=== PATIENT | male | born 1955 | race Two or more races ===

== ENCOUNTER 2021-11-12 11:06 | Inpatient (IN) | payer OTHER, MEDICAID ==
[~2021-11-12] VITALS: Ht 177.8 cm; Wt 89.5 kg
[2021-11-12] MEDS ORDERED: SODIUM CHLORIDE 0.9% 500 ML IV ONE (11:30)
[2021-11-12 12:43] LABS: Basophils # (auto) 0 10 ^3/uL (0-0.2); Eosinophils # (auto) 0.1 10 ^3/uL (0-0.8); Eosinophils % (auto) 1.3 % (0.0-7.0); Hemoglobin 10.1 g/dL (13.5-17.5); Mean Corpuscular Hgb Conc. 32.4 g/dL (32.0-36.0); Mean Corpuscular Volume 74.1 fL (80.0-100.0)
[2021-11-12 12:45] LABS: Basophils % (auto) 0.3 % (0.0-2.0); Lymphocytes # (auto) 0.4 10 ^3/uL (0.4-5.4); Lymphocytes % (auto) 5.1 % (10.0-50.0); Monocytes # (auto) 0.6 10 ^3/uL (0-1.3); Monocytes % (auto) 6.6 % (0.0-12.0); Neutrophils # (auto) 7.3 10 ^3/uL (1.6-8.6); Neutrophils % (auto) 86.7 % (37.0-80.0); Red Blood Cells 4.19 10^6/uL (4.5-5.90); Red Cell Distribution Width 16.4 % (11.8-14.3); White Blood Cell 8.4 10^3/uL (4.4-10.8)
[2021-11-12] MEDS ORDERED: AZITHROMYCIN 500MG/ 250ML 250 ML IV ONE (12:45)
[2021-11-12] MEDS ORDERED: SODIUM CHLORIDE 0.9% 1,000 ML IV ONE (12:45)
[2021-11-12] MEDS ORDERED: cefTRIAXone 1GM/50ML D5W 50 ML IV ONE ×2 (12:45)
[2021-11-12 13:07] LABS: Albumin 1.9 g/dL (3.4-5.0); BUN/Creatinine Ratio 22.5; Magnesium 2.1 mg/dL (1.6-2.6); Potassium 3.9 mmol/L (3.5-5.1)
[2021-11-12 13:10] LABS: Bilirubin, Total 0.4 mg/dL (0.2-1.0)
[2021-11-12 13:32] LABS: Urine Bacteria MANY /hpf (None Seen); Urine Blood 1+ /uL (Negative); Urine Mucus MANY (None Seen); Urine WBC 1299 /hpf (0 - 3); Urine WBC Clumps PRESENT /hpf (None Seen)
[2021-11-12 13:37] LABS: Urine Specific Gravity 1.012 (1.001-1.035)
[2021-11-12] MEDS ORDERED: MORPHINE SULFATE INJ 2 MG/ml SYRG IV ONE (14:00)
[2021-11-12] MEDS ORDERED: ONDANSETRON HCL 4 MG/2 ML VIAL IV ONE (14:00)
[2021-11-12] MEDS ORDERED: NITROGLYCERIN 0.4 MG SL TAB SL PRN (14:15)
[2021-11-12] MEDS ORDERED: MORPHINE SULFATE INJ 2 MG/ml SYRG IV PRN ×2 (14:15→20:30)
[2021-11-12] MEDS ORDERED: ACETAMINOPHEN 325 MG TAB PO ONE (18:30)
[2021-11-12] MEDS ORDERED: DOCUSATE SOD 100 MG CAP PO PRN (20:30)
[2021-11-12] MEDS ORDERED: ACETAMINOPHEN 325 MG TAB PO PRN (20:30)
[2021-11-12] MEDS ORDERED: hydrALAZINE HCL 20 MG/ML VL IV PRN (20:30)
[2021-11-12] MEDS ORDERED: PANTOPRAZOLE 40 MG/10 ML VIAL INJ IV ONE (20:30)
[2021-11-12] MEDS ORDERED: ONDANSETRON HCL 4 MG/2 ML VIAL IV PRN (20:30)
[2021-11-12 21:11] LABS: Magnesium 1.9 mg/dL (1.6-2.6); Phosphorus 3.1 mg/dL (2.5-4.90)
[2021-11-12] MEDS: GABAPENTIN 300 MG CAP PO SCH (22:00)
[2021-11-12] MEDS: traZODone HCL 50 MG TAB PO SCH (22:00)
[2021-11-12] MEDS: CLINDAMYCIN 600MG IV 50 ML IV SCH (22:00)
[2021-11-12 23:00] VITALS: BP 109/63
[2021-11-13] VITALS (7 sets, daily range): BP systolic 95–156; BP diastolic 48–82
[2021-11-13 00:18] LABS: INR 1.14 (0.9-1.15); Partial Thromboplastin Time 30.5 sec (23.6-33.0)
[2021-11-13] MEDS: HYDROcodone-ACET 5/325MG TAB PO PRN (00:33)
[2021-11-13] MEDS ORDERED: GABA100C9 PO (01:32)
[2021-11-13] MEDS ORDERED: ZOLP10TA PO (01:32)
[2021-11-13] MEDS ORDERED: LORA1TAB23 PO (01:32)
[2021-11-13] MEDS ORDERED: IBUP600T27 PO (01:32)
[2021-11-13] MEDS: LORazepam 0.5 MG TAB PO PRN (04:51)
[2021-11-13] MEDS: GABAPENTIN 300 MG CAP PO SCH ×3 (05:00→22:48)
[2021-11-13] MEDS: CLINDAMYCIN 600MG IV 50 ML IV SCH (05:00)
[2021-11-13 06:36] LABS: Basophils # (auto) 0 10 ^3/uL (0-0.2); Basophils % (auto) 0.3 % (0.0-2.0); Eosinophils # (auto) 0.3 10 ^3/uL (0-0.8); Hemoglobin 9.2 g/dL (13.5-17.5); Monocytes # (auto) 0.5 10 ^3/uL (0-1.3); Nucleated Red Blood Cells % 0.2 %; White Blood Cell 7.4 10^3/uL (4.4-10.8)
[2021-11-13 06:39] LABS: Eosinophils % (auto) 3.9 % (0.0-7.0); Hematocrit 28.9 % (41.0-53.0); Lymphocytes # (auto) 0.5 10 ^3/uL (0.4-5.4); Lymphocytes % (auto) 7.1 % (10.0-50.0); Mean Corpuscular Hemoglobin 24.1 pg (28.0-32.0); Mean Corpuscular Hgb Conc. 31.7 g/dL (32.0-36.0); Mean Corpuscular Volume 76.1 fL (80.0-100.0); Monocytes % (auto) 6.4 % (0.0-12.0); Neutrophils # (auto) 6.1 10 ^3/uL (1.6-8.6); Neutrophils % (auto) 82.3 % (37.0-80.0); Red Cell Distribution Width 16.5 % (11.8-14.3)
[2021-11-13 06:42] LABS: Chloride 106 mmol/L (98-107); Potassium 3.5 mmol/L (3.5-5.1); Sodium 139 mmol/L (136-145); Uric Acid 6.4 mg/dL (3.5-7.2)
[2021-11-13 06:53] LABS: Alanine Aminotransferase 11 U/L (16-61); Albumin 1.7 g/dL (3.4-5.0); Alkaline Phosphatase 156 U/L (45-117); Anion Gap 8 (5-15); Aspartate Aminotransferase 13 U/L (15-37); BUN/Creatinine Ratio 18.5; Bilirubin, Total 0.6 mg/dL (0.2-1.0); Blood Urea Nitrogen 10 mg/dL (7-18); Calcium 8.6 mg/dL (8.5-10.1); Carbon Dioxide 25 mmol/L (21-32); Cholesterol 121 mg/dL (< 200); Creatine Kinase IFCC 49 U/L (39-308); GFR African American 197 mL/min; GFR Non-African American 163 mL/min; Glucose 90 mg/dL (74-106); HDL Cholesterol 27 mg/dL (40-59); LDL Cholesterol 80 mg/dL (< 100); Lipase 74 U/L (73-393); Phosphorus 3.4 mg/dL (2.5-4.90); Total Protein 6.6 g/dL (6.4-8.2); Triglycerides 115 mg/dL (< 150)
[2021-11-13 06:58] LABS: INR 1.11 (0.9-1.15); Partial Thromboplastin Time 30.5 sec (23.6-33.0)
[2021-11-13 08:07] LABS: CRP High Sensitivity > 19.0 mg/dL (< 0.3)
[2021-11-13] MEDS ORDERED: cefTRIAXone 1GM/50ML D5W 50 ML IV SCH (09:00)
[2021-11-13] MEDS: ENOXAPARIN SOD 40 MG/0.4 ML SYRINGE SC SCH (09:04)
[2021-11-13] MEDS ORDERED: PANTOPRAZOLE 40 MG/10 ML VIAL INJ IV SCH (10:00)
[2021-11-13] MEDS: PIPERACILLIN-TAZO 4.5GM 100 ML IV SCH ×2 (16:30→22:53)
[2021-11-13] MEDS: traZODone HCL 50 MG TAB PO SCH (22:47)
[2021-11-14] MEDS: HYDROcodone-ACET 5/325MG TAB PO PRN (04:47)
[2021-11-14 04:56] VITALS: BP 106/59
[2021-11-14 05:24] LABS: Urine Bacteria FEW /hpf (None Seen); Urine Blood 2+ /uL (Negative); Urine Mucus FEW (None Seen); Urine Specific Gravity 1.014 (1.001-1.035); Urine WBC 834 /hpf (0 - 3); Urine WBC Clumps PRESENT /hpf (None Seen)
[2021-11-14 05:34] LABS: Amphetamine Screen, Urine NEGATIVE (NEGATIVE); Barbiturate Scree,Urine NEGATIVE (NEGATIVE); Benzodiazephine Screen, Urine NEGATIVE (NEGATIVE); Cannabinoid Screen, Urine NEGATIVE (NEGATIVE); Cocaine Screen, Urine NEGATIVE (NEGATIVE); Phencyclidine Screen, Urine NEGATIVE (NEGATIVE)
[2021-11-14 05:42] LABS: Opiate Scree,Urine POSITIVE (NEGATIVE)
[2021-11-14] MEDS: PIPERACILLIN-TAZO 4.5GM 100 ML IV SCH ×3 (05:48→22:10)
[2021-11-14] MEDS: GABAPENTIN 300 MG CAP PO SCH ×3 (05:48→22:10)
[2021-11-14 09:02] VITALS: BP 100/51
[2021-11-14] MEDS: ENOXAPARIN SOD 40 MG/0.4 ML SYRINGE SC SCH (12:17)
[2021-11-14 12:57] VITALS: BP 99/50
[2021-11-14 17:03] VITALS: BP 96/46
[2021-11-14] MEDS: PHENAZOPYRIDINE HCL 100 MG TAB PO SCH (18:12)
[2021-11-14] MEDS: Juven Orange Powder PACKET 27.5gm PO SCH (18:45)
[2021-11-14] MEDS: Pro-Stat SF 30ml Vanilla PO SCH (18:46)
[2021-11-14 22:00] VITALS: BP 94/54
[2021-11-14] MEDS: traZODone HCL 50 MG TAB PO SCH (22:10)
[2021-11-14] MEDS: LORazepam 0.5 MG TAB PO PRN (22:12)
[2021-11-15 05:00] VITALS: BP 110/65
[2021-11-15] MEDS: PIPERACILLIN-TAZO 4.5GM 100 ML IV SCH ×3 (05:31→21:24)
[2021-11-15] MEDS: GABAPENTIN 300 MG CAP PO SCH ×3 (05:31→21:25)
[2021-11-15 08:00] VITALS: BP 101/56
[2021-11-15] MEDS: PHENAZOPYRIDINE HCL 100 MG TAB PO SCH ×3 (08:00→18:06)
[2021-11-15] MEDS: Pro-Stat SF 30ml Vanilla PO SCH ×2 (08:00→18:08)
[2021-11-15 08:05] LABS: Basophils # (auto) 0 10 ^3/uL (0-0.2); Eosinophils # (auto) 0.3 10 ^3/uL (0-0.8); Hemoglobin 8.6 g/dL (13.5-17.5); Lymphocytes # (auto) 0.6 10 ^3/uL (0.4-5.4); Mean Corpuscular Volume 74.9 fL (80.0-100.0); Monocytes # (auto) 0.3 10 ^3/uL (0-1.3); Monocytes % (auto) 4.9 % (0.0-12.0); Neutrophils % (auto) 79.6 % (37.0-80.0)
[2021-11-15 08:07] LABS: Basophils % (auto) 0.5 % (0.0-2.0); Eosinophils % (auto) 5.1 % (0.0-7.0); Hematocrit 27.4 % (41.0-53.0); Lymphocytes % (auto) 9.9 % (10.0-50.0); Mean Corpuscular Hemoglobin 23.5 pg (28.0-32.0); Mean Corpuscular Hgb Conc. 31.4 g/dL (32.0-36.0); Neutrophils # (auto) 4.5 10 ^3/uL (1.6-8.6); Nucleated Red Blood Cells % 0.1 %; Red Blood Cells 3.66 10^6/uL (4.5-5.90); Red Cell Distribution Width 16.8 % (11.8-14.3); White Blood Cell 5.7 10^3/uL (4.4-10.8)
[2021-11-15 08:18] LABS: Albumin 1.7 g/dL (3.4-5.0); BUN/Creatinine Ratio 16.7; Calcium 8.7 mg/dL (8.5-10.1)
[2021-11-15 08:20] LABS: Bilirubin, Total 0.3 mg/dL (0.2-1.0); Total Protein 6.5 g/dL (6.4-8.2)
[2021-11-15] MEDS: ENOXAPARIN SOD 40 MG/0.4 ML SYRINGE SC SCH (10:00)
[2021-11-15 12:00] VITALS: BP 121/68
[2021-11-15] MEDS: Juven Orange Powder PACKET 27.5gm PO SCH ×2 (13:38→18:07)
[2021-11-15 13:45] VITALS: BP 121/68
[2021-11-15 16:00] VITALS: BP 111/59
[2021-11-15] MEDS: HYDROcodone-ACET 5/325MG TAB PO PRN (16:08)
[2021-11-15] MEDS: traZODone HCL 50 MG TAB PO SCH (21:24)
[2021-11-15 22:00] VITALS: BP 132/67
[2021-11-16] MEDS: HYDROcodone-ACET 5/325MG TAB PO PRN ×3 (01:25→21:30)
[2021-11-16 05:00] VITALS: BP 123/69
[2021-11-16] MEDS: GABAPENTIN 300 MG CAP PO SCH ×3 (05:27→21:30)
[2021-11-16] MEDS: PIPERACILLIN-TAZO 4.5GM 100 ML IV SCH ×4 (05:27→22:00)
[2021-11-16 06:40] LABS: Basophils # (auto) 0 10 ^3/uL (0-0.2); Eosinophils # (auto) 0.3 10 ^3/uL (0-0.8); Monocytes # (auto) 0.3 10 ^3/uL (0-1.3); Neutrophils # (auto) 3.9 10 ^3/uL (1.6-8.6)
[2021-11-16 06:45] LABS: Basophils % (auto) 0.3 % (0.0-2.0); Eosinophils % (auto) 5.3 % (0.0-7.0); Hematocrit 28.2 % (41.0-53.0); Lymphocytes # (auto) 0.8 10 ^3/uL (0.4-5.4); Mean Corpuscular Hemoglobin 23.8 pg (28.0-32.0); Mean Corpuscular Hgb Conc. 31.9 g/dL (32.0-36.0); Mean Corpuscular Volume 74.5 fL (80.0-100.0); Monocytes % (auto) 6.2 % (0.0-12.0); Neutrophils % (auto) 73.2 % (37.0-80.0); Nucleated Red Blood Cells % 0.1 %; Red Blood Cells 3.78 10^6/uL (4.5-5.90); Red Cell Distribution Width 16.6 % (11.8-14.3); White Blood Cell 5.3 10^3/uL (4.4-10.8)
[2021-11-16 06:56] LABS: BUN/Creatinine Ratio 18.2; Calcium 8.3 mg/dL (8.5-10.1); Magnesium 2.4 mg/dL (1.6-2.6); Phosphorus 2.7 mg/dL (2.5-4.90); Potassium 3.7 mmol/L (3.5-5.1)
[2021-11-16] MEDS: Pro-Stat SF 30ml Vanilla PO SCH ×2 (08:30→18:22)
[2021-11-16] MEDS: Juven Orange Powder PACKET 27.5gm PO SCH ×2 (08:30→18:22)
[2021-11-16] MEDS: PHENAZOPYRIDINE HCL 100 MG TAB PO SCH ×3 (08:30→18:23)
[2021-11-16 09:00] VITALS: BP 123/63
[2021-11-16] MEDS: ENOXAPARIN SOD 40 MG/0.4 ML SYRINGE SC SCH (10:20)
[2021-11-16 13:00] VITALS: BP 126/71
[2021-11-16 17:00] VITALS: BP 128/70
[2021-11-16] MEDS: traZODone HCL 50 MG TAB PO SCH (21:26)
[2021-11-16 22:00] VITALS: BP 115/75
[2021-11-16] MEDS: LORazepam 0.5 MG TAB PO PRN (22:59)
[2021-11-17 05:00] VITALS: BP 126/75
[2021-11-17] MEDS: PIPERACILLIN-TAZO 4.5GM 100 ML IV SCH (06:00)
[2021-11-17] MEDS: GABAPENTIN 300 MG CAP PO SCH ×3 (06:12→21:31)
[2021-11-17] MEDS: HYDROcodone-ACET 5/325MG TAB PO PRN ×2 (07:00→13:30)
[2021-11-17] MEDS: Pro-Stat SF 30ml Vanilla PO SCH ×2 (08:15→17:39)
[2021-11-17] MEDS: Juven Orange Powder PACKET 27.5gm PO SCH ×2 (08:15→17:39)
[2021-11-17 09:00] VITALS: BP 121/80
[2021-11-17] MEDS: ENOXAPARIN SOD 40 MG/0.4 ML SYRINGE SC SCH (10:08)
[2021-11-17] MEDS: PHENAZOPYRIDINE HCL 100 MG TAB PO SCH ×3 (10:08→17:40)
[2021-11-17] MEDS ORDERED: cefTRIAXone 1GM/50ML D5W 50 ML IV ONE (10:45)
[2021-11-17] MEDS: ALUM & MAG HYDROX-SIMETH LIQ(MAALOX) 30 ML PO PRN ×2 (12:04→21:55)
[2021-11-17 12:30] VITALS: BP 132/76
[2021-11-17 17:23] VITALS: BP 121/70
[2021-11-17] MEDS: traZODone HCL 50 MG TAB PO SCH (21:31)
[2021-11-17] MEDS: ZOLPIDEM TARTRATE 5 MG TAB PO PRN (21:50)
[2021-11-17 22:00] VITALS: BP 129/74
[2021-11-18] MEDS: HYDROcodone-ACET 5/325MG TAB PO PRN (04:52)
[2021-11-18 05:00] VITALS: BP 115/69
[2021-11-18] MEDS: GABAPENTIN 300 MG CAP PO SCH ×3 (05:51→21:17)
[2021-11-18 09:00] VITALS: BP 110/65
[2021-11-18] MEDS: Juven Orange Powder PACKET 27.5gm PO SCH ×2 (09:41→17:46)
[2021-11-18] MEDS: Pro-Stat SF 30ml Vanilla PO SCH ×2 (09:41→17:46)
[2021-11-18] MEDS: PHENAZOPYRIDINE HCL 100 MG TAB PO SCH ×3 (09:54→17:47)
[2021-11-18] MEDS: ENOXAPARIN SOD 40 MG/0.4 ML SYRINGE SC SCH (09:54)
[2021-11-18] MEDS: cefTRIAXone 1GM/50ML D5W 50 ML IV SCH (09:54)
[2021-11-18 13:00] VITALS: BP 131/67
[2021-11-18] MEDS: LOPERAMIDE HCL 2 MG CAP/TAB PO PRN ×2 (15:46→21:18)
[2021-11-18 17:00] VITALS: BP 114/72
[2021-11-18] MEDS: LORazepam 0.5 MG TAB PO PRN (18:06)
[2021-11-18] MEDS: traZODone HCL 50 MG TAB PO SCH (21:17)
[2021-11-18 22:00] VITALS: BP 122/69
[2021-11-19] VITALS (7 sets, daily range): BP systolic 108–131; BP diastolic 59–82
[2021-11-19] MEDS: ZOLPIDEM TARTRATE 5 MG TAB PO PRN (00:24)
[2021-11-19] MEDS: GABAPENTIN 300 MG CAP PO SCH ×3 (06:24→21:14)
[2021-11-19] MEDS: Juven Orange Powder PACKET 27.5gm PO SCH ×2 (08:00→18:00)
[2021-11-19] MEDS: Pro-Stat SF 30ml Vanilla PO SCH ×2 (08:00→18:00)
[2021-11-19] MEDS: cefTRIAXone 1GM/50ML D5W 50 ML IV SCH (09:41)
[2021-11-19] MEDS: PHENAZOPYRIDINE HCL 100 MG TAB PO SCH ×3 (09:42→18:00)
[2021-11-19] MEDS: ENOXAPARIN SOD 40 MG/0.4 ML SYRINGE SC SCH (09:42)
[2021-11-19] MEDS: LOPERAMIDE HCL 2 MG CAP/TAB PO PRN ×2 (13:45→14:12)
[2021-11-19] MEDS: traZODone HCL 50 MG TAB PO SCH (21:13)
[2021-11-19] MEDS: LORazepam 0.5 MG TAB PO PRN (22:06)
[2021-11-20 05:00] VITALS: BP 112/67
[2021-11-20] MEDS: GABAPENTIN 300 MG CAP PO SCH ×3 (06:18→22:29)
[2021-11-20] MEDS: Pro-Stat SF 30ml Vanilla PO SCH ×2 (08:00→23:32)
[2021-11-20] MEDS: Juven Orange Powder PACKET 27.5gm PO SCH ×2 (08:00→23:32)
[2021-11-20 09:33] VITALS: BP 110/66
[2021-11-20] MEDS: ENOXAPARIN SOD 40 MG/0.4 ML SYRINGE SC SCH (10:00)
[2021-11-20] MEDS: PHENAZOPYRIDINE HCL 100 MG TAB PO SCH ×3 (10:59→18:00)
[2021-11-20] MEDS: cefTRIAXone 1GM/50ML D5W 50 ML IV SCH (11:07)
[2021-11-20] MEDS: LOPERAMIDE HCL 2 MG CAP/TAB PO PRN (12:00)
[2021-11-20 13:25] VITALS: BP 126/62
[2021-11-20 15:27] LABS: Basophils # (auto) 0 10 ^3/uL (0-0.2); Basophils % (auto) 0.2 % (0.0-2.0); Eosinophils # (auto) 0.3 10 ^3/uL (0-0.8); Hematocrit 31.3 % (41.0-53.0); Hemoglobin 10.1 g/dL (13.5-17.5); Lymphocytes # (auto) 0.8 10 ^3/uL (0.4-5.4); Lymphocytes % (auto) 7.2 % (10.0-50.0); Mean Corpuscular Hemoglobin 24.2 pg (28.0-32.0); Mean Corpuscular Hgb Conc. 32.3 g/dL (32.0-36.0); Mean Corpuscular Volume 74.7 fL (80.0-100.0); Monocytes # (auto) 0.5 10 ^3/uL (0-1.3); Monocytes % (auto) 4.7 % (0.0-12.0); Neutrophils # (auto) 9.2 10 ^3/uL (1.6-8.6); Neutrophils % (auto) 84.9 % (37.0-80.0); Red Blood Cells 4.19 10^6/uL (4.5-5.90); Red Cell Distribution Width 16.9 % (11.8-14.3); White Blood Cell 10.8 10^3/uL (4.4-10.8)
[2021-11-20 15:35] LABS: INR 1.19 (0.9-1.15); Partial Thromboplastin Time 30.1 sec (23.6-33.0)
[2021-11-20 15:37] LABS: Albumin 2.2 g/dL (3.4-5.0); Calcium 8.4 mg/dL (8.5-10.1)
[2021-11-20 15:40] LABS: BUN/Creatinine Ratio 36.7; Bilirubin, Total 0.4 mg/dL (0.2-1.0); Total Protein 7.4 g/dL (6.4-8.2)
[2021-11-20 16:37] VITALS: BP 108/70
[2021-11-20] MEDS ORDERED: CIPROFLOXACIN 400MG/200ML 200 ML IV ONE (17:22)
[2021-11-20] MEDS ORDERED: MIDAZOLAM HCL 2MG/2ML 2ml VIAL (1mg/ml) ONE (19:07)
[2021-11-20] MEDS ORDERED: fentaNYL CITRATE 100 MCG/2 ML VL ONE (19:07)
[2021-11-20] MEDS ORDERED: ONDANSETRON HCL 4 MG/2 ML VIAL ONE (19:09)
[2021-11-20] MEDS ORDERED: LIDOCAINE 2% (LOCAL ANESTH.) PF 5ml SDV ONE (19:09)
[2021-11-20] MEDS ORDERED: PROPOFOL 10 MG/ML 20 ML IV ONE (19:58)
[2021-11-20] MEDS ORDERED: SUCCINYLCHOLINE CHLORIDE 20 MG/ML 10ML VIAL IV ONE (20:13)
[2021-11-20] MEDS ORDERED: ONDANSETRON HCL 4 MG/2 ML VIAL IV PRN (20:30)
[2021-11-20] MEDS ORDERED: HYDROmorphone HCL 2 MG/ML VL/or syr IV PRN (20:30)
[2021-11-20 22:00] VITALS: BP 123/69
[2021-11-20] MEDS: traZODone HCL 50 MG TAB PO SCH (22:29)
[2021-11-20] MEDS: HYDROcodone-ACET 5/325MG TAB PO PRN (23:32)
[2021-11-20] MEDS: Ensure HIGH Protein Chocolate 8oz Bottle PO SCH (23:32)
[2021-11-21 05:00] VITALS: BP 95/55
[2021-11-21] MEDS: GABAPENTIN 300 MG CAP PO SCH ×2 (05:41→13:54)
[2021-11-21 07:46] LABS: Basophils # (auto) 0 10 ^3/uL (0-0.2); Lymphocytes # (auto) 0.8 10 ^3/uL (0.4-5.4); Monocytes # (auto) 0.4 10 ^3/uL (0-1.3); Neutrophils # (auto) 4.5 10 ^3/uL (1.6-8.6)
[2021-11-21 07:49] LABS: Basophils % (auto) 0.7 % (0.0-2.0); Eosinophils # (auto) 0.4 10 ^3/uL (0-0.8); Eosinophils % (auto) 7.1 % (0.0-7.0); Hematocrit 30.2 % (41.0-53.0); Lymphocytes % (auto) 13.2 % (10.0-50.0); Mean Corpuscular Hemoglobin 24.9 pg (28.0-32.0); Mean Corpuscular Hgb Conc. 33.1 g/dL (32.0-36.0); Mean Corpuscular Volume 75.4 fL (80.0-100.0); Monocytes % (auto) 6.5 % (0.0-12.0); Neutrophils % (auto) 72.5 % (37.0-80.0); Red Cell Distribution Width 17.1 % (11.8-14.3); White Blood Cell 6.1 10^3/uL (4.4-10.8)
[2021-11-21 08:00] VITALS: BP 121/68
[2021-11-21 08:07] LABS: Albumin 2.1 g/dL (3.4-5.0); Calcium 8.5 mg/dL (8.5-10.1); Potassium 3.9 mmol/L (3.5-5.1)
[2021-11-21 08:12] LABS: Bilirubin, Total 0.4 mg/dL (0.2-1.0); Total Protein 6.7 g/dL (6.4-8.2)
[2021-11-21 08:22] LABS: BUN/Creatinine Ratio 43.8
[2021-11-21] MEDS: PHENAZOPYRIDINE HCL 100 MG TAB PO SCH ×2 (10:34→13:54)
[2021-11-21] MEDS: cefTRIAXone 1GM/50ML D5W 50 ML IV SCH (10:34)
[2021-11-21] MEDS: ENOXAPARIN SOD 40 MG/0.4 ML SYRINGE SC SCH (10:35)
[2021-11-21] MEDS: Pro-Stat SF 30ml Vanilla PO SCH (10:49)
[2021-11-21] MEDS: Juven Orange Powder PACKET 27.5gm PO SCH (10:49)
[2021-11-21] MEDS: Ensure HIGH Protein Chocolate 8oz Bottle PO SCH ×2 (10:49→12:31)
[2021-11-21 12:00] VITALS: BP 120/74
[2021-11-21 14:21] VITALS: BP 120/74
== END 2021-11-21 15:50 | disposition hospice, home (50) | DRG 698 ==
LOC: ER 11:06 → EDBD 11:06 → OVERFLOW 14:13 → CENTRAL 21:25 → TELE-CENTR 11-13 20:57 → CENTRAL 11-15 16:17 → UNDODISIN 11-19 14:05
PROVIDERS: ADMIT Hospitalist; ATTEND Internal Medicine
PROC: 0TCB8ZZ Extirpation of Matter from Bladder, Via Natural or Artificial Opening Endoscopic (ICD-10-PCS; principal; 2021-11-20 18:59)
DX: T83.518A Infection and inflammatory reaction due to other urinary catheter, initial encounter (principal); A41.9 Sepsis, unspecified organism; L89.154 Pressure ulcer of sacral region, stage 4; G93.41 Metabolic encephalopathy; J69.0 Pneumonitis due to inhalation of food and vomit; E43 Unspecified severe protein-calorie malnutrition; F11.20 Opioid dependence, uncomplicated; G82.20 Paraplegia, unspecified; N13.6 Pyonephrosis; L03.115 Cellulitis of right lower limb; L03.116 Cellulitis of left lower limb; D50.9 Iron deficiency anemia, unspecified; E86.0 Dehydration; F32.9 Major depressive disorder, single episode, unspecified; G35 Multiple sclerosis; K21.9 Gastro-esophageal reflux disease without esophagitis; K40.20 Bilateral inguinal hernia, without obstruction or gangrene, not specified as recurrent; Z20.822 Contact with and (suspected) exposure to COVID-19; E66.9 Obesity, unspecified; E78.5 Hyperlipidemia, unspecified; F41.9 Anxiety disorder, unspecified; I95.1 Orthostatic hypotension; N47.2 Paraphimosis; N21.0 Calculus in bladder; Z74.01 Bed confinement status; Z51.5 Encounter for palliative care; Z68.25 Body mass index [BMI] 25.0-25.9, adult; Z83.3 Family history of diabetes mellitus; Z79.899 Other long term (current) drug therapy
CPT/HCPCS: 36415; 70450; 71045; 74176; 80048; 80053; 80061; 80307; 81001; 82270; 82550; 82728; 83036; 83605; 83615; 83690; 83735; 83880; 84100; 84156; 84439; 84443; 84484; 84550; 85025; 85379; 85610; 85652; 85730; 86141; 87040; 87077; 87086; 87186; 87493; 87804; 93005; 93306; 93970; 96361; 96365; 96368; C9113; G0378; J0330; J0696; J2001; J2250; J2405; J2543; J2704; J3490